=== PATIENT | male | born 1965 | race Caucasian/White ===

== ENCOUNTER 2018-05-27 11:46 | Emergency (ER) | payer BC ==
[2018-05-27 11:58] VITALS: BP 135/74; PULSE 71; RESP 18; TEMP 98.9; O2SAT 100
--- NOTE | 2018-05-27 12:25 | C.PDOC ---
History Of Present Illness 52 year old male presents to the ED for an evaluation of mass to his right upper back that has been growing in size for one year. Reports his stuck a needle and some smelly discharge came out from the area. Denies any fever or chills. Time Seen by Provider: 05/27/18 12:24 Chief Complaint (Nursing): Abnormal Skin Integrity History Per: Patient History/Exam Limitations: no limitations Onset/Duration Of Symptoms: Days Current Symptoms Are (Timing): Still Present Location Of Injury: Right: Back (mass ) Past Medical History Reviewed: Historical Data, Nursing Documentation, Vital Signs Vital Signs: Last Vital Signs Temp 98.9 F 05/27/18 11:55 Pulse 71 05/27/18 11:55 Resp 18 05/27/18 11:55 BP 135/74 05/27/18 11:55 Pulse Ox 100 05/27/18 11:55 - Medical History PMH: No Chronic Diseases Surgical History: No Surg Hx Family History: States: No Known Family Hx - Social History Hx Alcohol Use: No Hx Substance Use: No Review Of Systems Constitutional: Negative for: Fever, Chills Skin: Positive for: Other (mass to right upper back) Physical Exam - Physical Exam Appears: Non-toxic, No Acute Distress Skin: Warm, Dry, Other (5x5 cm round soft mobile mildly tender non-erythematous mass to right upper back (-) discharge ) Head: Normacephalic Eye(s): bilateral: Normal Inspection Nose: Normal Oral Mucosa: Moist Neck: Supple Chest: Symmetrical Neurological/Psych: Oriented x3, Normal Speech Gait: Steady ED Course And Treatment O2 Sat by Pulse Oximetry: 100 (RA) Pulse Ox Interpretation: Normal Medical Decision Making Medical Decision Making: Pt with subcutaneous cyst to back. Dr Garcia also examined patient and agreed no signs of cellulitis or indication for antibiotic. Patient instructed to apply warm towel to area and follow up with Automotive Light Mechanic. Disposition Counseled Patient/Family Regarding: Diagnosis, Need For Followup - Disposition Referrals: Mason Mendoza MD [Staff Provider] - Disposition: HOME/ ROUTINE Disposition Time: 12:33 Condition: STABLE Additional Instructions: You were evaluated for subcutaneous cyst on back. You can apply warm towel to area. Do not stick any needles or objects as this may cause infection and do not recommend squeezing it. Follow up with product applications engineer for possible excision Instructions: Epidermal Cyst (DC) Forms: Narrable (Salvadorean) - POA Present On Arrival: None - Clinical Impression Clinical Impression: Inflamed sebaceous cyst - PA / BUILDING DRAFTER / Resident Statement MD/DO has reviewed & agrees with the documentation as recorded. - Scribe Statement The provider has reviewed the documentation as recorded by the Scribe Carolann Bennett All medical record entries made by the Scribe were at my direction and personally dictated by me. I have reviewed the chart and agree that the record accurately reflects my personal performance of the history, physical exam, medical decision making, and the department course for this patient. I have also personally directed, reviewed, and agree with the discharge instructions and disposition.
== END 2018-05-27 12:49 | disposition home or self-care (01) ==
LOC: C.ER 11:46
DX: L72.3 Sebaceous cyst (principal)